=== PATIENT | female | born 1975 | race Caucasian/White ===

== ENCOUNTER 2025-05-16 16:58 | Emergency (ER) | payer SELFPAY ==
[~2025-05-16] VITALS: Ht 167.6 cm; Wt 69.1 kg
[2025-05-16 17:07] VITALS: TEMP 99.5
[2025-05-16] MEDS ORDERED: MULT-90 PO (17:26)
[2025-05-16 18:30] VITALS: BP 129/95; O2SAT 95
== END 2025-05-16 18:55 | disposition left against medical advice (07) ==
LOC: M ED 16:58 → EDBD 16:58 → M ED 18:55
DX: Z53.21 Procedure and treatment not carried out due to patient leaving prior to being seen by health care provider (principal)